=== PATIENT | female | born 1960 ===

== ENCOUNTER 2017-06-27 06:19 | Day surgery (SDC) | payer OTHER ==
[2017-06-27] MEDS ORDERED: Propofol 10 mg/ml Inj (20 ML) ONE ×2 (08:00→08:04)
[2017-06-27 08:31] VITALS: TEMP 98.4; O2SAT 99
[2017-06-27 09:03] VITALS: BP 120/77; PULSE 73; RESP 18
== END 2017-06-27 09:45 | disposition home or self-care (01) ==
LOC: C.ENDO 06:19
PROVIDERS: ATTEND Internal Medicine
DX: Z12.11 Encounter for screening for malignant neoplasm of colon (principal); K62.5 Hemorrhage of anus and rectum; K59.04 Chronic idiopathic constipation; Z86.010 Personal history of colon polyps; F32.9 Major depressive disorder, single episode, unspecified; J45.909 Unspecified asthma, uncomplicated; Z80.0 Family history of malignant neoplasm of digestive organs; K64.8 Other hemorrhoids
CPT/HCPCS: 45378; J2704

== ENCOUNTER 2017-07-21 08:34 | Day surgery (SDC) | payer OTHER ==
[2017-07-21 09:10] VITALS: BMI 40.2
[2017-07-21] MEDS ORDERED: Propofol 10 mg/ml Inj (20 ML) ONE (11:41)
[2017-07-21] MEDS ORDERED: Lidocaine 1% Inj (20ml) ONE (11:42)
[2017-07-21 12:16] VITALS: TEMP 97.5
[2017-07-21 12:56] VITALS: RESP 13; O2SAT 99
[2017-07-21 12:59] VITALS: BP 110/77; PULSE 63
== END 2017-07-21 12:45 | disposition home or self-care (01) ==
LOC: C.ENDO 08:34
PROVIDERS: ATTEND Internal Medicine
DX: K20.8 Other esophagitis (principal); K44.9 Diaphragmatic hernia without obstruction or gangrene; K29.50 Unspecified chronic gastritis without bleeding; Z80.0 Family history of malignant neoplasm of digestive organs; J45.909 Unspecified asthma, uncomplicated; I25.10 Atherosclerotic heart disease of native coronary artery without angina pectoris; F32.9 Major depressive disorder, single episode, unspecified; Z86.010 Personal history of colon polyps; Z87.19 Personal history of other diseases of the digestive system; K59.04 Chronic idiopathic constipation
CPT/HCPCS: 43239; 88305; 88313; 88342; J2704